=== PATIENT | female | born 1950 | race African-American/Black ===

== ENCOUNTER 2019-11-02 08:57 | Emergency (ER) | payer OTHER ==
[2019-11-02] MEDS ORDERED: PROMETHAZINE INJ 25 MG/ML AMP ONE (09:34)
[2019-11-02] MEDS ORDERED: NA CHLORIDE 0.9% 1,000 ML ONE (09:34)
[2019-11-02] MEDS ORDERED: ACETAMINOPHEN 325 MG TABLET ONE (09:34)
[2019-11-02 10:02] LABS: Absolute Lymphocytes (CBC) 0.6 K/uL (0.7-4.9); Basophils % 0.2 % (0-1.3); Hematocrit 44.4 % (36.0-45.0); Lymphocytes % 3.7 % (15.3-44.8); MPV 8.5 fL (7.6-11.3); RBC Red Blood Cell Count 5.47 M/uL (3.86-4.86)
[2019-11-02 10:19] LABS: Albumin 3.5 g/dL (3.4-5.0); Bilirubin Direct 0.2 mg/dL (0-0.2); Bilirubin Total 0.8 mg/dL (0.2-1.0); Potassium 4.1 mmol/L (3.5-5.1); Protein, Total 8.3 g/dL (6.4-8.2)
[2019-11-02 11:16] LABS: Blood Morphology Comment NOT SEEN (NOT SEEN); Platelet Estimate ADEQ
--- NOTE | 2019-11-02 11:29 | RAD REPORT ---
EXAM DESCRIPTION: CTAbdomen Pelvis W Contrast - 11/02/2019 10:34 am CLINICAL HISTORY: Abdominal pain. Abd pain;Nausea / vomiting COMPARISON: No comparisons TECHNIQUE: Biphasic CT imaging of the abdomen and pelvis was performed with 100 ml non-ionic IV cont rast. All CT scans are performed using dose optimization technique as appropriate and may include automated exposure control or mA/KV adjustment according to patient size. FINDINGS: Emphysematous changes are present in both lung bases.Small hiatal hernia. Mild diffuse fatty liver is present. The spleen, pancreas, adrenal glands and kidneys show no acute p rocess. 19 mm benign left renal cyst. No bowel obstruction, free air, free fluid or abscess. The appendix is normal. Multiple large masses are present emanating from the uterus likely representing fibroids. No evidence of significant lymph adenopathy. No suspicious bony findings. IMPRESSION: No acute intra-abdominal or pelvic finding. Leiomyomatous uterus.
[2019-11-02] MEDS ORDERED: metroNIDAZOLE 500 MG TABLET ONE (11:43)
[2019-11-02] MEDS ORDERED: CIPROFLOXACIN HCL 500 MG TAB ONE (11:43)
--- NOTE | 2019-11-02 11:59 | ER ---
Nurse's Notes [facility] Name: Sobeida Hay Age: 69 yrs Sex: Female : 1950 Arrival Date: 11/02/2019 Time: 09:01 Bed 7 Private MD: Mary Woo C Diagnosis: Vomiting, unspecified;Diarrhea, unspecified Presentation: 11/01 09:07 Chief complaint: Patient states: LUQ pain that began last night. Pt also reports N/V/D. aa5 09:07 Coronavirus screen: The patient has NOT traveled to a country currently being monitored aa5 by the [facility] within the last 14 days. Ebola Screen: Patient negative for fever greater than or equal to 101.5 degrees Fahrenheit, and additional compatible Ebola Virus Disease symptoms. Initial Sepsis Screen: Does the patient meet any 2 criteria? HR > 90 bpm. Does the patient have a suspected source of infection? Yes: Acute abdominal pain. Risk Assessment: Do you want to hurt yourself or someone else? Patient reports no desire to harm self or others. 09:07 Acuity: MONICA 3 aa5 09:07 Method Of Arrival: Ambulatory aa5 Historical: - Allergies: 09:58 Tamiflu; em - PMHx: 09:16 Irregular heart rate; aa5 - PSHx: 09:16 colon resection; cataracts; Hernia repair; tubal ; aa5 - Immunization history:: Adult Immunizations up to date. - Family history:: not pertinent. - Social history:: Smoking status: Patient denies any tobacco usage or history of. - Hospitalizations: : No recent hospitalization is reported. Screenin:30 Abuse screen: Denies threats or abuse. Nutritional screening: No deficits noted. em Tuberculosis screening: No symptoms or risk factors identified. Fall Risk None identified. Assessment: 09:30 General: Appears in no apparent distress. comfortable, well groomed, well developed, em well nourished, Behavior is calm, cooperative, Denies fever. Pain: Complains of pain in epigastric area Pain began 1 day ago. Neuro: Level of Consciousness is awake, alert, obeys commands, Oriented to person, place, time, situation, Appropriate for age. Cardiovascular: Capillary refill < 3 seconds Patient's skin is warm and dry. Respiratory: Airway is patent Respiratory effort is even, unlabored, Respiratory pattern is regular, symmetrical. GI: Abdomen is flat, Bowel sounds present X 4 quads. Reports diarrhea, nausea, vomiting. EENT: Oral mucosa is dry. Derm: Skin is intact, is healthy with good turgor, Skin is pink, warm \T\ dry. Musculoskeletal: Capillary refill < 3 seconds, Range of motion: intact in all extremities. 10:46 Reassessment: Patient appears in no apparent distress at this time. Patient and/or em family updated on plan of care and expected duration. Pain level reassessed. Patient is alert, oriented x 3, equal unlabored respirations, skin warm/dry/pink. Patient states feeling better. Patient states symptoms have improved. 11:45 Reassessment: Patient appears in no apparent distress at this time. Patient and/or em family updated on plan of care and expected duration. Pain level reassessed. Patient is alert, oriented x 3, equal unlabored respirations, skin warm/dry/pink. Patient states feeling better. Patient states symptoms have improved. Vital Signs: 09:07 BP 127 / 95; Pulse 124; Resp 18 S; Temp 99.2(TE); Pulse Ox 96% on R/A; aa5 09:11 BP 139 / 99; Pulse 104; Resp 20; Pulse Ox 96% on R/A; em 10:00 BP 127 / 79; Pulse 100; Resp 18; Pulse Ox 99% on R/A; em 10:47 BP 119 / 66; Pulse 85; Resp 18; Pulse Ox 96% on R/A; Pain 2/10; em 11:36 BP 130 / 70; Pulse 85; Resp 18; Pulse Ox 94% on R/A; em ED Course: 09:01 Patient arrived in ED. ag5 09:01 Mary Woo MD is Private Physician. ag5 09:02 Easton Osborne MD is Attending Physician. rn 09:07 Arm band placed on. aa5 09:15 Triage completed. aa5 09:15 Rashard Howell, RN is Primary Nurse. em 09:30 Patient has correct armband on for positive identification. Placed in gown. Bed in low em position. Call light in reach. Side rails up X2. Adult w/ patient. Pulse ox on. NIBP on. 09:45 Initial lab(s) drawn, by me, sent to lab. Inserted saline lock: 20 gauge in left em antecubital area, using aseptic technique. Blood collected. 10:34 CT completed. Patient tolerated procedure well. Patient moved back from CT. mw3 10:35 CT Abd/Pelvis - IV Contrast Only In Process Unspecified. EDMS 11:58 Mary Woo MD is Referral Physician. rn 12:12 No provider procedures requiring assistance completed. IV discontinued, intact, em bleeding controlled, No redness/swelling at site. Pressure dressing applied. Administered Medications: 09:38 Drug: Tylenol 650 mg Route: PO; em 11:44 Follow up: Response: No adverse reaction em 09:45 Drug: NS 0.9% 1000 ml Route: IV; Rate: 1000 ml; Site: left antecubital; em 11:36 Follow up: IV Status: Completed infusion; IV Intake: 1000ml em 09:45 Drug: Phenergan 12.5 mg Route: IVP; Site: left antecubital; em 11:36 Follow up: Response: No adverse reaction; Marked relief of symptoms; Nausea is decreasedem 11:44 Drug: Cipro 500 mg Route: PO; em 12:16 Follow up: Response: No adverse reaction em 11:44 Drug: Flagyl 500 mg Route: PO; em 12:16 Follow up: Response: No adverse reaction em Intake: 11:36 IV: 1000ml; Total: 1000ml. em Outcome: :58 Discharge ordered by MD. rn 12:12 Discharged to home via wheelchair, with family. em 12:12 Condition: good 12:12 Discharge instructions given to patient, family, Instructed on discharge instructions, follow up and referral plans. medication usage, Demonstrated understanding of instructions, follow-up care, medications, Prescriptions given X 3. 12:17 Patient left the ED. em Signatures: Dispatcher [employer] EDMS Rashard Howell RN RN em Easton Osborne MD MD rn Calderon, Audri, RN RN aa5 Jennifer Hoover mw3 Esme Tinoco 5 Corrections: (The following items were deleted from the chart) :58 09:16 Allergies: No Known Allergies; aa5 em
--- NOTE | 2019-11-02 12:00 | EDPHYS ---
Physician Documentation [facility] Name: Sobeida Hay Age: 69 yrs Sex: Female : 1950 Arrival Date: 11/02/2019 Time: 09:01 Bed 7 Private MD: Mary Woo C ED Physician Easton Osborne HPI: 11/01 09:42 This 69 yrs old Black Female presents to ER via Ambulatory with complaints of rn Vomiting/Diarrhea, Abdominal Pain. 09:42 The patient presents to the emergency department with nausea, vomiting, diarrhea, rn abdominal pain, of the epigastric area and umbilical area, described as burning. Onset: The symptoms/episode began/occurred last night. Possible causes: unknown. The symptoms are aggravated by nothing. The symptoms are alleviated by nothing. Severity of symptoms: At their worst the symptoms were moderate in the emergency department the symptoms are unchanged. The patient has not experienced similar symptoms in the past. reports nausea/vomiting/diarrhea that began last night, assoc with burning mid and upper abd pain, grandchild is sick with similar symptoms, no cough/sob. No blood in emesis or stool. . Historical: - Allergies: 09:58 Tamiflu; em - PMHx: 09:16 Irregular heart rate; aa5 - PSHx: 09:16 colon resection; cataracts; Hernia repair; tubal ; aa5 - Immunization history:: Adult Immunizations up to date. - Family history:: not pertinent. - Social history:: Smoking status: Patient denies any tobacco usage or history of. - Hospitalizations: : No recent hospitalization is reported. ROS: 09:42 Constitutional: + subjective fever Eyes: Negative for injury, pain, redness, and sports marketing internship, ENT: Negative for injury, pain, and discharge, Neck: Negative for injury, pain, and swelling, Cardiovascular: Negative for chest pain, palpitations, and edema, Respiratory: Negative for shortness of breath, cough, wheezing, and pleuritic chest pain, Abdomen/GI: + abd pain/nausea/vomiting/diarrhea MS/Extremity: Negative for injury and deformity, Skin: Negative for injury, rash, and discoloration, Neuro: Negative for headache, numbness, tingling, and seizure. Exam: 09:42 Constitutional: This is a well developed, well nourished patient who is awake, alert, rn and in no acute distress. Head/Face: Normocephalic, atraumatic. ENT: dry MM Cardiovascular: Tachycardic, regular, intact distal pulses Respiratory: No increased work of breathing, no retractions or nasal flaring. Abdomen/GI: soft, mild periumbilical tenderness MS/ Extremity: Pulses equal, no cyanosis. Neuro: Awake and alert, GCS 15, oriented to person, place, time, and situation. Vital Signs: 09:07 BP 127 / 95; Pulse 124; Resp 18 S; Temp 99.2(TE); Pulse Ox 96% on R/A; aa5 09:11 BP 139 / 99; Pulse 104; Resp 20; Pulse Ox 96% on R/A; em 10:00 BP 127 / 79; Pulse 100; Resp 18; Pulse Ox 99% on R/A; em 10:47 BP 119 / 66; Pulse 85; Resp 18; Pulse Ox 96% on R/A; Pain 2/10; em 11:36 BP 130 / 70; Pulse 85; Resp 18; Pulse Ox 94% on R/A; em MDM: 09:08 Patient medically screened. rn 11:12 ED course: Pt improved, no vomiting or diarrhea while here. . rn 11:56 Differential diagnosis: Nonspecific abd pain, gastritis, appendicitis, diverticulitis, rn viral gastroenteritis, gastroenteritis. Data reviewed: vital signs, nurses notes, lab test result(s), radiologic studies, CT scan, and as a result, I will discharge patient. Counseling: I had a detailed discussion with the patient and/or guardian regarding: the historical points, exam findings, and any diagnostic results supporting the discharge/admit diagnosis, lab results, radiology results, the need for outpatient follow up, to return to the emergency department if symptoms worsen or persist or if there are any questions or concerns that arise at home. Response to treatment: the patient's symptoms have markedly improved after treatment, and as a result, I will discharge patient. Special discussion: I discussed with the patient/guardian in detail that at this point there is no indication for admission to the hospital. It is understood, however, that if the symptoms persist or worsen the patient needs to return immediately for re-evaluation. ED course: No acute findings on CT abdomen, most likely enteritis, consulted with Dr. Woo who requests abx given if discharged. . 11/01 09:18 Order name: Basic Metabolic Panel; Complete Time: 10:34 rn 11/01 09:18 Order name: CBC with Diff; Complete Time: 11:31 rn 11/01 09:18 Order name: Creatinine for Radiology; Complete Time: 10:34 rn 11/01 09:18 Order name: Hepatic Function; Complete Time: 10:34 rn 11/01 09:18 Order name: Lipase; Complete Time: 10:34 rn 11/01 09:18 Order name: Flu; Complete Time: 10:14 rn 11/01 09:18 Order name: IV Saline Lock; Complete Time: 09:59 rn 11/01 09:18 Order name: CT Abd/Pelvis - IV Contrast Only; Complete Time: 11:31 rn 11/01 11:16 Order name: Manual Differential; Complete Time: 11:31 EDMS 11/01 09:18 Order name: Labs collected and sent; Complete Time: 09:59 rn Administered Medications: 09:38 Drug: Tylenol 650 mg Route: PO; em 11:44 Follow up: Response: No adverse reaction em 09:45 Drug: NS 0.9% 1000 ml Route: IV; Rate: 1000 ml; Site: left antecubital; em 11:36 Follow up: IV Status: Completed infusion; IV Intake: 1000ml em 09:45 Drug: Phenergan 12.5 mg Route: IVP; Site: left antecubital; em 11:36 Follow up: Response: No adverse reaction; Marked relief of symptoms; Nausea is decreasedem 11:44 Drug: Cipro 500 mg Route: PO; em 12:16 Follow up: Response: No adverse reaction em 11:44 Drug: Flagyl 500 mg Route: PO; em 12:16 Follow up: Response: No adverse reaction em Disposition: 11/02/19 11:58 Discharged to Home. Impression: Vomiting, unspecified, Diarrhea, unspecified. - Condition is Stable. - Discharge Instructions: Diarrhea, Adult, Nausea and Vomiting, Adult. - Prescriptions for Zofran ODT 4 mg Oral tablet,disintegrating - place 1 tablet by TRANSLINGUAL route every 8 hours As needed; 20 tablet. Flagyl 500 mg Oral Tablet - take 1 tablet by ORAL route every 8 hours for 10 days; 30 tablet. Cipro 500 mg Oral Tablet - take 1 tablet by ORAL route every 12 hours for 10 days; 20 tablet. - Medication Reconciliation Form, Thank You Letter, Antibiotic Education, Prescription Opioid Use form. - Follow up: Mary Woo MD; When: As needed; Reason: Recheck today's complaints, Re-evaluation by your physician. - Problem is new. - Symptoms have improved. Signatures: Dispatcher [employer] EDRashard Thomas RN RN em Easton Osborne MD MD rn Calderon, Audri, RN RN aa5 Corrections: (The following items were deleted from the chart) 09:58 09:16 Allergies: No Known Allergies; aa5 em 12:17 11:58 11/02/2019 11:58 Discharged to Home. Impression: Vomiting, unspecified; Diarrhea, em unspecified. Condition is Stable. Forms are Medication Reconciliation Form, Thank You Letter, Antibiotic Education, Prescription Opioid Use. Follow up: Mary Woo; When: As needed; Reason: Recheck today's complaints, Re-evaluation by your physician. Problem is new. Symptoms have improved. rn
[2019-11-02 12:24] VITALS: TEMP 99.2
[2019-11-02 12:30] VITALS: BP 130/70; O2SAT 94
== END 2019-11-02 12:17 | disposition home or self-care (01) ==
LOC: ER 08:57
DX: R19.7 Diarrhea, unspecified (principal); Z88.8 Allergy status to other drugs, medicaments and biological substances
CPT/HCPCS: 96361; 85025; 80048; 36415; 80076; 83690; 87804 ×2; 74177; 96374; 99284; Q9967; J2550; J7030

== ENCOUNTER 2021-11-24 08:47 | Emergency (ER) | payer OTHER ==
--- OUTSIDE RECORDS SUMMARY | 2021-11-24 08:52 | XMS REPORT | Continuity of Care Document ---
:1950 Author Organization [facility] Address [address] [place] [address] Care Team Providers Name Role Phone [phone] Primary Care Physician Unavailable LUKE Attending Clinician Unavailable MD Caty EDWARDS Attending Clinician Unavailable JERRY Attending Clinician Unavailable Babs REAL Attending Clinician Unavailable LUKE Admitting Clinician Unavailable MD Caty EDWARDS Admitting Clinician Unavailable Payers Payer Name Policy Type Policy Number Effective Date Expiration Date S ource [employer]ARE [address] 2013 PPO 00:00:00 [employer] PPO POS [address] 2013 2015 00:00:00 00:00:00 Problems This patient has no known problems. Allergies, Adverse Reactions, Alerts This patient has no known allergies or adverse reactions. Medications This patient has no known medications. Procedures This patient has no known procedures. Encounters Start End Encounter Admission Attending Care Care Encounter Source Date/Time Date/Time Type Type Clinicians Facility Department ID 2021-09-29 Outpatient TITUS QURESHI [id number] 17:49:09 Anderso n 2021-09-29 Outpatient TITUS QURESHI [id number] 17:49:09 Anderso n 2021-09-29 Outpatient TITUS QURESHI [id number] 17:49:08 Anderso n 2021-09-29 Outpatient TITUS QURESHI [id number] 17:49:08 Anderso n 2021-09-29 Outpatient TITUS QURESHI [id number] 17:49:07 Anderso n 2020-03-18 Outpatient TITUS BUTLER Preethi/Hep/Nu [id number] 10:45:28 FLORENCIO t Anderso n 2021-04-25 2021-04-25 Outpatient SUJATHA EDWARDS H [id number] [place] 00:00:00 00:00:00 [address] [address] 2020-12-31 2020-12-31 Outpatient [facility] [id number] 07:24:35 07:24:35 Crow johnson Results Test Description Test Time Test Comments Results Result Comments Source SARS-CoV-2 (COVID-19) RNA [Presence] in Respiratory sp ecimen by 2021-04-25 22:12:55 FRANCOISE with probe detection Test Item Value Reference Range Interpretation Comme nts SARS-CoV-2 (COVID-19) RNA [Presence] in Respiratory Not detected No t-Detected specimen by FRANCOISE with probe detection (test code = 04973-0) Whether patient is employed in a healthcare setting (test code = 93201-5) Whether the patient has symptoms related to condition of interest (test code = 72660-1) Patient was hospitalized because of this condition (test code = 30939-9) Whether the patient was admitted to intensive care unit (ICU) for condition of interest (test code = 84888-2) Whether patient resides in a congregate care setting (test code = 27394-0)
--- NOTE | 2021-11-24 09:33 | RAD REPORT ---
EXAM DESCRIPTION: CT - Head C Spine Mpr Wo Con - 11/24/2021 9:14 am CLINICAL HISTORY: Head and neck injury status post fall. Head and neck pain COMPARISON: None. TECHNIQUE: Computed axial tomography of the head and cervical spine was obtained. Sagittal and coronal reconstruction was performed. All CT scans are performed using dose optimization technique as appropriate and may include automated exposure control or mA/KV adjustment according to patient size. FINDINGS: Left frontal scalp swelling. An intracranial bleed is not seen. The ventricles are normal in caliber. An extra-axial fluid collect ion is not noted. A cervical fracture is not visualized. No dislocation is noted. Spondylosis involves the cervical spine IMPRESSION: No acute intracranial abnormality is seen. A cervical fracture is not visualized. If the patient continues to have symptoms to suggest intracra nial /spinal cord pathology then MRI would be recommended
--- NOTE | 2021-11-24 09:36 | RAD REPORT ---
EXAM DESCRIPTION: CT - Facial Bones W/ Mpr - 11/24/2021 9:14 am CLINICAL HISTORY: Facial injury status post fall COMPARISON: Facial pain TECHNIQUE: Computed axial tomography of the face was obtained. Coronal and sagittal reconstruction w as performed. All CT scans are performed using dose optimization technique as appropriate and may include automated exposure control or mA/KV adjustment according to patient size. FINDINGS: Left supraorbital swelling. A fracture is not seen. A TMJ dislocation is not noted. The globes are intact. Fluid within the sinuses is not seen. IMPRESSION: Negative for a facial fracture.
--- NOTE | 2021-11-24 09:50 | EDPHYS ---
Physician Documentation [facility] Name: Sobeida Hay Age: 71 yrs Sex: Female : 1950 Arrival Date: 11/24/2021 Time: 08:51 Bed 8 Private MD: Mary Woo C ED Physician Easton Osborne HPI: 11/24 08:56 This 71 yrs old Black Female presents to ER via Unassigned with complaints of Fall rn Injury, Head Injury-Adult. 08:56 Details of fall: The patient fell from an upright position, while walking. Onset: The rn symptoms/episode began/occurred just prior to arrival. Associated injuries: The patient sustained injury to the head. Severity of symptoms: At their worst the symptoms were mild, in the emergency department the symptoms are unchanged. The patient has not experienced similar symptoms in the past. The patient has not recently seen a physician. Pt reports walking around her car to put something in trunk, was uneven floor, fell, not able to catch herself, hit head on concrete. No LOC. NO vomiting. Does not take blood thinners. NO other injuries. States got up on her own and called her family member. Ambulatory. . Historical: - Allergies: 09:04 No Known Allergies; ap3 - Home Meds: 09:04 omeprazole 20 mg Oral cpDR [Active]; ap3 - PMHx: 09:04 Irregular heart rate; ap3 09:04 Cancer-Colorectal cancer- In remission; ap3 - Immunization history:: Client reports receiving the 2nd dose of the Covid vaccine, with booster Last tetanus immunization: not immunized Flu vaccine is not up to date. - Immunization history: Last tetanus immunization: unknown. - Family history:: not pertinent. - Social history:: Smoking status: Patient denies any tobacco usage or history of. - Hospitalizations: : No recent hospitalization is reported. ROS: 08:56 Constitutional: Negative for fever, chills, and weight loss, Eyes: Negative for injury, rn pain, redness, and discharge, ENT: Negative for injury, pain, and discharge, Neck: Negative for injury, pain, and swelling, Cardiovascular: Negative for chest pain, palpitations, and edema, Respiratory: Negative for shortness of breath, cough, wheezing, and pleuritic chest pain, Abdomen/GI: Negative for abdominal pain, nausea, vomiting, diarrhea, and constipation, Back: Negative for injury and pain, MS/Extremity: Negative for injury and deformity, Skin: + abrasions to face and left 5th finger Neuro: Negative for weakness, numbness, tingling, and seizure, + mild headache Exam: 08:56 Constitutional: This is a well developed, well nourished patient who is awake, alert, rn and in no acute distress. Ambulatory to bed from wheelchair on her own without assistance. Head/Face: Normocephalic, 3 cm left frontal hematoma without laceration or active bleeding. + abrasions to left cheek and just above lip. + abrasion to nasal bridge. Eyes: Pupils equal round and reactive to light, extra-ocular motions intact. Lids and lashes normal. Conjunctiva and sclera are non-icteric and not injected. Cornea within normal limits. Periorbital areas with no swelling, redness, or edema. ENT: No septal hematoma, no oral trauma, no dental injury or malalignment. Neck: Trachea midline, no masses palpated. No vertebral point tenderness. Chest/axilla: Normal chest wall appearance and motion. Nontender with no deformity. No crepitus Cardiovascular: Regular rate and rhythm. No pulse deficits. Respiratory: No increased work of breathing, no retractions or nasal flaring. Abdomen/GI: Soft, non-tender Back: No spinal tenderness. No costovertebral tenderness. Full range of motion. Skin: Warm, dry, + small abrasion to dorsum of left 5th finger over PIP, + abrasions to left forehead/nasal bridge/left cheek/left philtrum. MS/ Extremity: Pulses equal, no cyanosis. Neurovascular intact. Full, normal range of motion. Equal circumference. FROM without scissoring of left hand. Neuro: Awake and alert, GCS 15, oriented to person, place, time, and situation. Cranial nerves II-XII grossly intact. Motor strength 5/5 in all extremities. Sensory grossly intact. Cerebellar exam normal. Normal gait. Vital Signs: 09:02 BP 157 / 78; Pulse 70; Temp 98.7; Pulse Ox 100% ; Weight 81.65 kg; Height 5 ft. 6 in. ap3 (167.64 cm); 09:30 BP 156 / 78; Pulse 74; Resp 16; Pulse Ox 99% ; vg1 09:02 Body Mass Index 29.05 (81.65 kg, 167.64 cm) ap3 [place] Coma Score: 09:02 Eye Response: spontaneous(4). Verbal Response: oriented(5). Motor Response: obeys ap3 commands(6). Total: 15. 09:30 Eye Response: spontaneous(4). Verbal Response: oriented(5). Motor Response: obeys vg1 commands(6). Total: 15. Trauma Score (Adult): 09:02 Eye Response: spontaneous(1); Verbal Response: oriented(1); Motor Response: obeys ap3 commands(2); Systolic BP: > 89 mm Hg(4); Respiratory Rate: 10 to 29 per min(4); [place] Score: 15; Trauma Score: 12 09:30 Eye Response: spontaneous(1); Verbal Response: oriented(1); Motor Response: obeys vg1 commands(2); Systolic BP: > 89 mm Hg(4); Respiratory Rate: 10 to 29 per min(4); [place] Score: 15; Trauma Score: 12 MDM: 08:55 Patient medically screened. rn 09:48 Differential diagnosis: abrasion, closed head injury, contusion, fracture. Data rn reviewed: vital signs, nurses notes, radiologic studies, CT scan, and as a result, I will discharge patient. Counseling: I had a detailed discussion with the patient and/or guardian regarding: the historical points, exam findings, and any diagnostic results supporting the discharge/admit diagnosis, radiology results, the need for outpatient follow up, to return to the emergency department if symptoms worsen or persist or if there are any questions or concerns that arise at home. Response to treatment: the patient's symptoms have markedly improved after treatment, and as a result, I will discharge patient. Special discussion: Based on the patient's history, exam and DX evaluation, there is no indication for emergent intervention or inpatient TX. It is understood by the patient/guardian that if the SXs persist or worsen they need to return immediately for re-evaluation. I discussed with the patient/guardian in detail that at this point there is no indication for admission to the hospital. It is understood, however, that if the symptoms persist or worsen the patient needs to return immediately for re-evaluation. 11/24 08:56 Order name: CT Head C Spine; Complete Time: 09:48 rn 11/24 08:56 Order name: CT Facial Bones W/O Con; Complete Time: 09:48 rn 11/24 08:56 Order name: Wound Care; Complete Time: 08:57 rn 11/24 08:56 Order name: Wound dressing: steri-strips; Complete Time: 09:34 rn Administered Medications: 09:58 Drug: Tylenol 650 mg Route: PO; vg1 10:08 Follow up: Response: Medication administered at discharge. vg1 Disposition Summary: 11/24/21 09:49 Discharge Ordered Location: Home rn Problem: new rn Symptoms: have improved rn Condition: Stable rn Diagnosis - Unspecified superficial injury of other part of head, initial encounter rn Followup: rn - With: Private Physician - When: As needed - Reason: Recheck today's complaints, Re-evaluation by your physician Discharge Instructions: - Discharge Summary Sheet rn - Head Injury, Adult rn - Hematoma rn Forms: - Medication Reconciliation Form rn - Thank You Letter rn - Antibiotic international first officer - Prescription Opioid Use rn Signatures: Dispatcher [employer] EDEaston Jiménez MD MD rn Prokisch, Amanda RN RN [id number] Taty Loco, RN RN vg1 Corrections: (The following items were deleted from the chart) 09:05 09:04 Allergies: Tamiflu; ap3 ap3
--- NOTE | 2021-11-24 09:50 | ER ---
Nurse's Notes [facility] Name: Sobeida Hay Age: 71 yrs Sex: Female : 1950 Arrival Date: 11/24/2021 Time: 08:51 Bed 8 Private MD: Mary Woo C Diagnosis: Unspecified superficial injury of other part of head, initial encounter Presentation: 11/24 08:59 Chief complaint: Patient states: she was walking on uneven ground when she fell, she ap3 attempted to catch herself, however patient reports hitting her head on concrete. Patient presents with abrasions to her face, visible knot on her forehead and abrasions on her left hand. Care prior to arrival: None. Mechanism of Injury: Fall from standing position. Trauma event details: Injury occurred in the [facility], Injury occurred: November 24, 2021. 08:59 Acuity: MONICA 3 ap3 08:59 Method Of Arrival: Ambulatory ap3 09:03 Coronavirus screen: At this time, the client does not indicate any symptoms associated ap3 with coronavirus-19. Ebola Screen: No symptoms or risks identified at this time. Initial Sepsis Screen: Does the patient meet any 2 criteria?. Initial Sepsis Screen: Does the patient have a suspected source of infection? No. Patient's initial sepsis screen is negative. Risk Assessment: Do you want to hurt yourself or someone else? Patient reports no desire to harm self or others. Onset of symptoms was November 24, 2021. Trauma Activation: Alert Physician: ED Physician; Name: Concepcion; Notified At: ; Arrived At: Physician: General Surgeon; Name: ; Notified At: ; Arrived At: Physician: Radiology; Name: ; Notified At: ; Arrived At: Physician: Respiratory; Name: ; Notified At: ; Arrived At: Physician: Lab; Name: ; Notified At: ; Arrived At: Historical: - Allergies: 09:04 No Known Allergies; ap3 - Home Meds: 09:04 omeprazole 20 mg Oral cpDR [Active]; ap3 - PMHx: 09:04 Irregular heart rate; ap3 09:04 Cancer-Colorectal cancer- In remission; ap3 - Immunization history:: Client reports receiving the 2nd dose of the Covid vaccine, with booster Last tetanus immunization: not immunized Flu vaccine is not up to date. - Immunization history: Last tetanus immunization: unknown. - Family history:: not pertinent. - Social history:: Smoking status: Patient denies any tobacco usage or history of. - Hospitalizations: : No recent hospitalization is reported. Screenin:01 Abuse screen: Denies threats or abuse. Nutritional screening: No deficits noted. ap3 Tuberculosis screening: No symptoms or risk factors identified. Fall Risk Fall in past 12 months (25 points). No secondary diagnosis (0 pts). No IV (0 pts). Ambulatory Aid- None/Bed Rest/Nurse Assist (0 pts). Gait- Normal/Bed Rest/Wheelchair (0 pts) Mental Status- Oriented to own ability (0 pts). Total Rosario Fall Scale indicates Low Risk Score (25-44 pts). Fall prevention measures have been instituted. Side Rails Up X 2 Placed close to Nursing Station Frequent Obs/Assesments occuring Family Present and informed to notify staff if they need to leave bedside As available Patient and Family Educated on Fall Prevention Program and strategies. Primary Survey: 09:01 NO uncontrolled hemorrhage observed. A: The patient is alert. Airway: patent, No ap3 supplemental oxygen in use on arrival. Breathing/Chest: Respiratory pattern: regular, Respiratory effort: spontaneous, Chest inspection: symmetrical rise and fall of the chest. Circulation: Skin temperature: warm, dry. Disability Alert. Exposure/Environment: All clothing and personal items were removed. Forensic evidence collection is not deemed to be indicated at this time. Items placed in patient belonging bag. There is no evidence of uncontrolled external bleeding. Obvious injury(ies) are noted at this time: multiple abrasions on face, left hand and swelling on forehead. A warming method has been applied: A warm blanket has been provided to the patient. 09:30 Reassessment Airway Airway Patent Breathing/Chest Respiratory pattern Regular vg1 Respiratory effort Spontaneous Circulation Color [place] Disability Alert. Secondary Survey: 09:04 HEENT: Face Other large hematoma to forehead above left eye, abrasion to bridge of ph nose, abrasion below left eye, abrasion to left pinky finger. Musculoskeletal: No deficits noted. No signs and/or symptoms reported regarding the musculoskeletal system. Injury Description: Abrasion sustained to nose, left side of forehead and left eye. Injury Description: Abrasion sustained to palmar aspect of distal phalanx of left little finger. Assessment: 09:00 General: Appears in no apparent distress. Behavior is calm, cooperative. Pain: ap3 Complains of pain in face. Neuro: Level of Consciousness is awake, alert, obeys commands, Oriented to person, place, time, situation, Gait is steady, Speech is normal, Facial symmetry appears normal. Cardiovascular: Patient's skin is warm and dry. Respiratory: Airway is patent Respiratory effort is even, unlabored. Derm: Wound noted face and left hand. Musculoskeletal: Swelling present in forehead. 09:00 General: Appears in no apparent distress. uncomfortable, Behavior is calm, cooperative. vg1 Pain: Complains of pain in forehead and left cheek Pain currently is 1 out of 10 on a pain scale. Pain began 30 min ago. Neuro: Level of Consciousness is awake, alert, obeys commands, Oriented to person, place, time, situation, Reports headache. Cardiovascular: Patient's skin is warm and dry. Respiratory: Airway is patent Respiratory effort is even, unlabored. GI: No signs and/or symptoms were reported involving the gastrointestinal system. : No signs and/or symptoms were reported regarding the genitourinary system. EENT: No signs and/or symptoms were reported regarding the EENT system. Derm: Wound noted wound forehead and left cheek. Musculoskeletal: Swelling present in forehead. 09:58 Reassessment: received VO from Dr Osborne to administer Tylenol 650 mg PO. vg1 Vital Signs: 09:02 BP 157 / 78; Pulse 70; Temp 98.7; Pulse Ox 100% ; Weight 81.65 kg; Height 5 ft. 6 in. ap3 (167.64 cm); 09:30 BP 156 / 78; Pulse 74; Resp 16; Pulse Ox 99% ; vg1 09:02 Body Mass Index 29.05 (81.65 kg, 167.64 cm) ap3 [place] Coma Score: 09:02 Eye Response: spontaneous(4). Verbal Response: oriented(5). Motor Response: obeys ap3 commands(6). Total: 15. 09:30 Eye Response: spontaneous(4). Verbal Response: oriented(5). Motor Response: obeys vg1 commands(6). Total: 15. Trauma Score (Adult): 09:02 Eye Response: spontaneous(1); Verbal Response: oriented(1); Motor Response: obeys ap3 commands(2); Systolic BP: > 89 mm Hg(4); Respiratory Rate: 10 to 29 per min(4); [place] Score: 15; Trauma Score: 12 09:30 Eye Response: spontaneous(1); Verbal Response: oriented(1); Motor Response: obeys vg1 commands(2); Systolic BP: > 89 mm Hg(4); Respiratory Rate: 10 to 29 per min(4); [place] Score: 15; Trauma Score: 12 ED Course: 08:51 Patient arrived in ED. mr 08:51 Mary Woo MD is Private Physician. mr 08:55 Easton Osborne MD is Attending Physician. rn 09:00 Triage completed. ap3 09:03 Arm band placed on right wrist. ap3 09:03 Patient has correct armband on for positive identification. Bed in low position. Call ap3 light in reach. Side rails up X2. Adult w/ patient. Pulse ox on. NIBP on. Door closed. Noise minimized. 09:06 Patient maintains SpO2 saturation greater than 95% on room air. Thermoregulation: warm ph blanket given to patient. 09:16 CT Head C Spine In Process Unspecified. EDMS 09:16 CT Facial Bones W/O Con In Process Unspecified. EDMS 09:32 Taty Loco, RN is Primary Nurse. vg1 10:09 No provider procedures requiring assistance completed. Patient did not have IV access vg1 during this emergency room visit. Administered Medications: 09:58 Drug: Tylenol 650 mg Route: PO; vg1 10:08 Follow up: Response: Medication administered at discharge. vg1 Outcome: 09:49 Discharge ordered by . rn 09:50 Discharged to home via wheelchair, with family. vg1 09:50 Condition: good 09:50 Patient's length of stay was not longer than 2 hours. 10:09 Discharge instructions given to patient, family, Instructed on discharge instructions, vg1 follow up and referral plans. Demonstrated understanding of instructions, follow-up care. 10:10 Patient left the ED. vg1 Signatures: Dispatcher [employer] [facility] Doris Forte Easton Osborne MD MD rn Hall, Patricia, RN RN Sofia Jarquin RN RN [facility] Taty Loco RN RN vg1 Corrections: (The following items were deleted from the chart) 09:04 09: NO uncontrolled hemorrhage observed ph ph : 09:02 A: The patient is alert. Airway: patent, No supplemental oxygen in use on ph arrival. ph : 09:02 Breathing/Chest: Respiratory pattern: regular, Respiratory effort: spontaneous, ph unlabored, Chest inspection: symmetrical rise and fall of the chest, ph : 09:02 Circulation: Skin color: pink, Skin temperature: warm, dry, ph ph : 09:02 Disability Alert ph ph : 09:02 Exposure/Environment: There is no evidence of uncontrolled external bleeding. ph Obvious injury(ies) are noted at this time: large hematoma to L side of forehead, abrasion to bridge of nose, abrasion below L eye, small abrasion to L middle finger A warming method has been applied: A warm blanket has been provided to the patient. ph :04 Allergies: Tamiflu; ap3 ap3
[2021-11-24] MEDS ORDERED: ACETAMINOPHEN 325 MG TABLET ONE (10:01)
[2021-11-24 10:14] VITALS: TEMP 98.7
[2021-11-24 10:15] VITALS: BP 156/78; O2SAT 99
== END 2021-11-24 10:10 | disposition home or self-care (01) ==
LOC: ER 08:47
DX: S00.81XA Abrasion of other part of head, initial encounter (principal); S60.417A Abrasion of left little finger, initial encounter; W18.30XA Fall on same level, unspecified, initial encounter; Z85.038 Personal history of other malignant neoplasm of large intestine; Z85.048 Personal history of other malignant neoplasm of rectum, rectosigmoid junction, and anus
CPT/HCPCS: 70450; 70486; 72125; 76377; 99284

== ENCOUNTER 2023-12-12 13:19 | Emergency (ER) | payer OTHER ==
[2023-12-12] MEDS ORDERED: NA CHLORIDE 0.9% 1,000 ML ONE (13:38)
[2023-12-12] MEDS ORDERED: FAMOTIDINE 20 MG/2 ML VIAL IV ONE (13:38)
[2023-12-12] MEDS ORDERED: ONDANSETRON 4 MG/2 ML VIAL ONE (13:38)
[2023-12-12 14:06] LABS: Absolute Basophils 0.1 K/uL (0-0.5); Absolute Lymphocytes (CBC) 0.9 K/uL (0.7-4.9); Absolute Monocytes 0.4 K/uL (0.1-1.3); Absolute Neutrophil 9.6 K/uL (1.8-8.0); Basophils % 0.5 % (0-1.3); Hematocrit 43.6 % (36.0-45.0); Hemoglobin 13.9 g/dL (12.0-15.0); Lymphocytes % 8.3 % (15.3-44.8); MCH 26.3 pg (27.0-35.0); MCHC 31.8 g/dL (32.0-36.0); MCV 82.6 fL (80-100); MPV 8.4 fL (7.6-11.3); Neutrophils % 87.2 % (41.7-73.7); Platelets 225 thou/uL (152-406); RBC Red Blood Cell Count 5.28 M/uL (3.86-4.86)
--- NOTE | 2023-12-12 14:18 | RAD REPORT ---
EXAM DESCRIPTION: RAD - Chest Single View - 12/12/2023 2:05 pm CLINICAL HISTORY: PAIN Chest pain. COMPARISON: Chest Pa And Lat (2 Views) dated 06/08/2020; CHEST PA AND LAT 2 VIEW dated 03/22/2015 FINDINGS: Portable technique limits examination quality. The lungs are grossly clear. The heart is normal in size. No displaced fractures. IMPRESSION: No acute intrathoracic process suspected.
[2023-12-12 14:32] LABS: Albumin 3.5 g/dL (3.4-5.0); Albumin/Globulin Ratio 0.8 (1.1-1.8); Anion Gap 9.8 mEq/L (5.0-15.0); Bilirubin Total 0.7 mg/dL (0.2-1.0); Globulin 4.5 g/dL (2.3-3.5); Potassium 3.8 mEq/L (3.5-5.1); Troponin High Sensitivity 6.1 pg/mL (<58.9)
--- NOTE | 2023-12-12 14:33 | RAD REPORT ---
EXAM DESCRIPTION: US - Abdomen Exam Limited - 12/12/2023 2:26 pm CLINICAL HISTORY: ABD PAIN COMPARISON: Renal Ultrasound-Complete dated 06/09/2021 FINDINGS: The gallbladder demonstrates no gallstones. No pericholecystic fluid or gallbladder wall t hickening. The common bile duct is normal measuring 3 mm. The liver demonstrates no findings of intrahepatic biliary dilatation. IMPRESSION: Unremarkable examination.
--- NOTE | 2023-12-12 14:55 | RAD REPORT ---
EXAM DESCRIPTION: CTAbdomen Pelvis W Contrast - 12/12/2023 2:45 pm CLINICAL HISTORY: Abdominal pain. ABD PAIN COMPARISON: Abdomen Pelvis W Contrast dated 11/02/2019; Abdomen Exam Limited dated 12/12/2023 TECHNIQUE: Biphasic CT imaging of the abdomen and pelvis was performed with 100 ml non-ionic IV cont rast. All CT scans are performed using dose optimization technique as appropriate and may include automated exposure control or mA/KV adjustment according to patient size. FINDINGS: The lung bases are clear.Small hiatal hernia. The liver, spleen, pancreas, adrenal glands and kidneys are within normal limits. 2.9 cm benign left renal cyst. No bowel obstruction, free air, free fluid or abscess. Partial right-sided colectomy. Appendix surgic ally absent. No evidence of significant lymphadenopathy. Leiomyomatous uterus. No suspicious bony findings. IMPRESSION: No acute intra-abdominal or pelvic finding.
--- NOTE | 2023-12-12 15:07 | ER ---
Nurse's Notes [facility] Name: Sobeida Hay Age: 73 yrs Sex: Female : 1950 Arrival Date: 12/12/2023 Time: 13:19 Bed 19 Private MD: Diagnosis: Epigastric pain Presentation: 12/11 13:26 Chief complaint: Patient states: threw up a lot of thick, clear, mucus this morning, ko1 having epigastric pain, headache, called Dr Woo office and they told her to take a covid test which was negative, then suggested she come to ER. Coronavirus screen: At this time, the client does not indicate any symptoms associated with coronavirus-19. Ebola Screen: No symptoms or risks identified at this time. Initial Sepsis Screen: Does the patient meet any 2 criteria? No. Patient's initial sepsis screen is negative. Does the patient have a suspected source of infection? No. Patient's initial sepsis screen is negative. Risk Assessment: Do you want to hurt yourself or someone else? Patient reports no desire to harm self or others. Onset of symptoms was December 12, 2023. 13:26 Method Of Arrival: Ambulatory ko1 13:26 Acuity: MONICA 3 ko1 Triage Assessment: 13:31 General: Appears in no apparent distress. Behavior is calm, cooperative, appropriate ko1 for age. Pain: Complains of pain in epigastric area. GI: Reports epigastric pain, nausea, vomiting. Historical: - Allergies: 13:31 No Known Allergies; ko1 - PMHx: 13:31 Cancer-Colorectal cancer- In remission; Irregular heart rate; ko1 - Immunization history:: Adult Immunizations up to date. - Infectious Disease History:: Denies. - Social history:: Smoking status: Patient denies any tobacco usage or history of. Screenin:26 [facility] ED Fall Risk Assessment (Adult) History of falling in the last 3 months, kc6 including since admission No falls in past 3 months (0 pts) Confusion or Disorientation No (0 pts) Intoxicated or Sedated No (0 pts) Impaired Gait No (0 pts) Mobility Assist Device Used No (0 pt) Altered Elimination No (0 pt) Score/Fall Risk Level 0 - 2 = Low Risk. Abuse screen: Denies threats or abuse. Denies injuries from another. Nutritional screening: No deficits noted. Tuberculosis screening: No symptoms or risk factors identified. Assessment: 14:27 General: Appears in no apparent distress. comfortable, well groomed, well developed, kc6 Behavior is calm, cooperative, appropriate for age. Pain: Complains of pain in abdomen and epigastric area Quality of pain is described as burning. Neuro: Level of Consciousness is awake, alert, obeys commands, Oriented to person, place, time, situation, Appropriate for age Reports headache. Cardiovascular: Capillary refill < 3 seconds. Respiratory: Airway is patent Trachea midline Respiratory effort is even, unlabored, Respiratory pattern is regular, symmetrical. GI: Abdomen is flat, non-distended, Bowel sounds present X 4 quads. Abd is soft X 4 quads Abdomen is tender to palpation in epigastric area Reports upper abdominal pain, nausea, vomiting, Patient currently denies diarrhea. : No signs and/or symptoms were reported regarding the genitourinary system. EENT: No signs and/or symptoms were reported regarding the EENT system. Derm: No signs and/or symptoms reported regarding the dermatologic system. Skin is intact, is healthy with good turgor, Skin is pink, warm \T\ dry. Musculoskeletal: No signs and/or symptoms reported regarding the musculoskeletal system. Circulation, motion, and sensation intact. Capillary refill < 3 seconds, Range of motion: intact in all extremities. Vital Signs: 13:26 BP 157 / 90; Pulse 92; Resp 18; Temp 98; Pulse Ox 99% on R/A; ko1 ED Course: 13:23 Patient arrived in ED. im 13:23 Cindy Rodas FNP-C [facility] kb 13:23 Herson Rodas MD is Attending Physician. kb 13:31 Triage completed. ko1 13:31 Arm band placed on right wrist. Patient placed in an exam room, on a stretcher, on ko1 clinical research monitor, on pulse oximetry, Patient notified of wait time. 13:34 Stella López RN is Primary Nurse. kc6 14:01 Inserted saline lock: 20 gauge in right antecubital area, using aseptic technique. kc6 Blood collected. 14:07 XRAY Chest (1 view) In Process Unspecified. EDMS 14:26 Abdomen Limited US In Process Unspecified. EDMS 14:27 Patient has correct armband on for positive identification. Placed in gown. Bed in low kc6 position. Call light in reach. Side rails up X 1. Adult w/ patient. Client placed on continuous cardiac and pulse oximetry monitoring. NIBP monitoring applied. 14:47 CT Abd/Pelvis - IV Contrast Only In Process Unspecified. EDMS 15:17 No provider procedures requiring assistance completed. IV discontinued, intact, kc6 bleeding controlled, No redness/swelling at site. Pressure dressing applied. Administered Medications: 14:01 Drug: NS 0.9% IV 1000 ml IV at 1 bolus Per protocol; 1000 mL bolus Route: IV; Rate: 1 kc6 bolus; Site: right antecubital; 14:01 Drug: Famotidine IVP 20 mg IVP once; dilute with 10 mL 0.9% NaCl; give over 2 minutes kc6 Route: IVP; Site: right antecubital; 14:01 Drug: Ondansetron IVP 4 mg IVP once; over 2 minutes Route: IVP; Site: right antecubital;kc6 Medication: 15:17 VIS not applicable for this client. kc6 Outcome: 15:07 Discharge ordered by . kb 15:17 Discharged to home ambulatory, with significant other, kc6 15:17 Condition: improved 15:17 Discharge instructions given to patient, Instructed on discharge instructions, follow up and referral plans. medication usage, Demonstrated understanding of instructions, follow-up care, medications, Prescriptions given X 2, 15:17 Patient left the ED. kc6 Signatures: Dispatcher [employer] EDMS Cindy Rodas, ESEQUIEL CHANDLER-Stella Stapleton RN RN kc6 Annalise Frey RN RN ko1 Leticia Saldivar
--- NOTE | 2023-12-12 15:07 | EDPHYS ---
Physician Documentation [facility] Name: Sobeida Hay Age: 73 yrs Sex: Female : 1950 Arrival Date: 12/12/2023 Time: 13:19 Bed 19 Private MD: ED Physician Herson Rodas HPI: 12/11 13:36 This 73 yrs old Black Female presents to ER via Ambulatory with complaints of Vomiting, kb Headache, Abdominal Pain. 13:36 Pt is a 73-year-old female who reports burning pain to the epigastric area as well as kb nausea and vomiting x 3 today. States she woke up with the pain and vomiting at 0200. Denies fever, diarrhea. States she called Dr. Woo's office and had a virtual appointment scheduled for 4:15 but was told to come to the ER for evaluation by his office staff. Denies chest pain or shortness of breath.. Historical: - Allergies: 13:31 No Known Allergies; ko1 - PMHx: 13:31 Cancer-Colorectal cancer- In remission; Irregular heart rate; ko1 - Immunization history:: Adult Immunizations up to date. - Infectious Disease History:: Denies. - Social history:: Smoking status: Patient denies any tobacco usage or history of. ROS: 13:36 Constitutional: As per HPI kb Exam: 13:36 Constitutional: This is a well developed, well nourished patient who is awake, alert, kb and in no acute distress. Head/Face: Normocephalic, atraumatic. ENT: Moist Mucous membranes Cardiovascular: Regular rate Respiratory: Respirations even and unlabored. No increased work of breathing. Talking in full sentences Abdomen/GI: Soft, non-tender. No distention Skin: Warm, dry with normal turgor. Normal color. MS/ Extremity: Pulses equal, no cyanosis. Neurovascular intact. Full, normal range of motion. Neuro: Awake and alert, GCS 15, oriented to person, place, time, and situation. Moves all extremities. Normal gait. 13:57 ECG was reviewed by the Attending Physician. kb Vital Signs: 13:26 BP 157 / 90; Pulse 92; Resp 18; Temp 98; Pulse Ox 99% on R/A; ko1 MDM: 13:23 Patient medically screened. kb 13:37 Data reviewed: vital signs, nurses notes. kb 15:06 Differential diagnosis: Nonspecific abd pain, gastritis, cholecystitis, pancreatitis, kb GERD. Management of patient was discussed with the following: Primary Care Provider: Dr Woo, recommends outpatient follow up in office next week. Counseling: I had a detailed discussion with the patient and/or guardian regarding the historical points, exam findings, and any diagnostic results supporting the discharge/admit diagnosis, lab results, radiology results, the need for outpatient follow up, a family practitioner, to return to the emergency department if symptoms worsen or persist or if there are any questions or concerns that arise at home. ED course: At bedside to reassess patient. Patient remains awake, alert and at baseline mentation. Patient appears stable. Patient exhibits no visible signs of distress. Patient respirations even and unlabored. I discussed patient's diagnosis, differential diagnosis, expected course of illness, at home recommendations and strict return precautions. I advised patient to follow-up with PCP next week. I explained all diagnostic results with the patient and answered all questions that patient had regarding the most likely diagnosis. I emphasized the need for close outpatient follow-up and care from primary care provider/specialist and went through careful and detailed return precautions with patient. Patient expressed full understanding of such and agrees with plan for discharge today. Feel patient is stable and appropriate for discharge and ongoing management of condition at home at this time.. 12/11 13:33 Order name: CBC with Diff; Complete Time: 14:09 kb 12/11 13:33 Order name: CMP; Complete Time: 14:35 kb 12/11 13:33 Order name: Lipase; Complete Time: 14:35 kb 12/11 13:33 Order name: Troponin HS; Complete Time: 14:35 kb 12/11 13:33 Order name: Abdomen Limited US; Complete Time: 14:35 kb 12/11 13:33 Order name: XRAY Chest (1 view); Complete Time: 14:29 kb 12/11 14:35 Order name: CT Abd/Pelvis - IV Contrast Only; Complete Time: 14:58 kb 12/11 13:33 Order name: IV Saline Lock; Complete Time: 14:01 kb 12/11 13:33 Order name: Labs collected and sent; Complete Time: 14:01 kb 12/11 13:33 Order name: EKG - Nurse/Tech; Complete Time: 14:01 kb EC:57 Rate is 78 beats/min. Rhythm is regular. QRS [place] is Normal. [place] interval is normal at kb 184 msec. QRS interval is normal at 102 msec. QT interval is normal at 446 msec. Administered Medications: 14:01 Drug: NS 0.9% IV 1000 ml IV at 1 bolus Per protocol; 1000 mL bolus Route: IV; Rate: 1 kc6 bolus; Site: right antecubital; 14:01 Drug: Famotidine IVP 20 mg IVP once; dilute with 10 mL 0.9% NaCl; give over 2 minutes kc6 Route: IVP; Site: right antecubital; 14:01 Drug: Ondansetron IVP 4 mg IVP once; over 2 minutes Route: IVP; Site: right antecubital;kc6 Disposition Summary: 12/12/23 15:07 Discharge Ordered Notes: Location: Home kb Condition: Stable kb Diagnosis - Epigastric pain kb Followup: kb - With: Emergency Department - When: As needed - Reason: Worsening of condition Followup: kb - With: Private Physician - When: 2 - 3 days - Reason: Recheck today's complaints, Continuance of care, Re-evaluation by your physician Discharge Instructions: - Discharge Summary Sheet kb - Abdominal Pain, Adult, [id number] kb - Gastroesophageal Reflux Disease, Adult, [id number] kb Forms: - Medication Reconciliation Form kb - Thank You Letter kb - Antibiotic Education kb - Prescription Opioid Use kb - Patient Portal Instructions kb - Leadership Thank You Letter kb Prescriptions: - Zofran 4 mg Oral tablet - take 1 tablet ORAL route every 6 hours As needed; 12 tablet; Refills: 0, kb Product Selection Permitted - Pepcid 20 mg Oral Tablet - take 1 tablet ORAL route once daily; 20 tablet; Refills: 0, Product Selection kb Permitted Addendum: 12/14/2023 01:03 I was immediately available for consultation during this patient's visit. I did not e c2 personally see the patient or discuss the patient with the VIKI. . Signatures: Dispatcher [employer] Cindy Corea FNP-C FNP-Stella Stapleton RN RN kc6 Annalise Frey RN RN ko1 Herson Rodas MD MD ec2 Corrections: (The following items were deleted from the chart) 12/11 13:34 13:34 Chest Single View+RAD.RAD.BRZ ordered. EDMS EDMS
[2023-12-12 22:10] VITALS: BP 157/90; TEMP 98; O2SAT 99
== END 2023-12-12 15:17 | disposition home or self-care (01) ==
LOC: ER 13:19
DX: R10.13 Epigastric pain (principal); R11.2 Nausea with vomiting, unspecified; R51.9 Headache, unspecified; Z85.038 Personal history of other malignant neoplasm of large intestine; Z85.048 Personal history of other malignant neoplasm of rectum, rectosigmoid junction, and anus
CPT/HCPCS: 85025; 36415; 84484; 83690; 80053; 74177; 71045; 76705; Q9967; J2405; J7030; 93005

== ENCOUNTER 2024-09-15 09:12 | Emergency (ER) | payer OTHER ==
[2024-09-15] MEDS ORDERED: ONDANSETRON 4 MG/2 ML VIAL ONE (09:33)
[2024-09-15] MEDS ORDERED: FAMOTIDINE 20 MG/2 ML VIAL IV ONE (09:33)
[2024-09-15 09:58] LABS: Absolute Lymphocytes (CBC) 2.1 K/uL (0.7-4.9); Absolute Monocytes 0.9 K/uL (0.1-1.3); Absolute Neutrophil 2.4 K/uL (1.8-8.0); Basophils % 0.5 % (0-1.3); Hematocrit 45.6 % (36.0-45.0); Hemoglobin 14.7 g/dL (12.0-15.0); Lymphocytes % 38.4 % (15.3-44.8); MCH 26.7 pg (27.0-35.0); MCHC 32.3 g/dL (32.0-36.0); MCV 82.8 fL (80-100); MPV 8.7 fL (7.6-11.3); Monocytes % 16.1 % (3.3-12.3); Nucleated Red Blood Cells % 0.2 % (0-0); Platelets 179 thou/uL (152-406); RBC Red Blood Cell Count 5.51 M/uL (3.86-4.86); Red Cell Distribution Width 14.2 % (12.1-15.2)
[2024-09-15 10:09] LABS: Sqamous Epithelial <5 /HPF (None Seen); Urine Bacteria <20 /HPF (<20); Urine Bilirubin NEGATIVE (Negative); Urine Blood 1+ (Negative); Urine Clarity Extremely Turbid (Clear); Urine Color Yellow (Yellow); Urine Culture Reflex Order NOT NEEDED; Urine Glucose NEGATIVE (Negative); Urine Ketones 1+ (Negative); Urine Microscopic Reflex YN ORDER UMIC; Urine Mucus 4+ /HPF (None Seen); Urine Nitrite NEGATIVE (Negative); Urine Protein 1+ (Negative); Urine RBC <5 /HPF (None Seen); Urine Urobilinogen Normal (Normal); Urine pH 5.5 (5.0-7.0)
[2024-09-15 10:13] LABS: SARS-CoV-2 Antigen CONTROL BLUE LINE VIS/BG OK; SARS-CoV-2 Antigen Rapid Res Negative (Negative)
--- NOTE | 2024-09-15 10:15 | RAD REPORT ---
EXAMINATION: ONE VIEW CHEST XR CLINICAL INDICATION: COUGH TECHNIQUE: Frontal chest projection is submitted. Examination is limited by patient positioning and t echnique. COMPARISON: 05/18/2024 FINDINGS: The lungs are well inflated and clear. The heart is upper limit of normal in size. No displaced fract ures identified. IMPRESSION: No acute intrathoracic abnormalities.
[2024-09-15 10:17] LABS: Albumin 3.4 g/dL (3.4-5.0); Albumin/Globulin Ratio 0.8 (1.1-1.8); Anion Gap 10.6 mEq/L (5.0-15.0); Bilirubin Direct 0.2 mg/dL (0-0.2); Bilirubin Indirect, Calculated 0.5 mg/dL (0.2-0.8); Bilirubin Total 0.7 mg/dL (0.2-1.0); Globulin 4.3 g/dL (2.3-3.5); Magnesium 2.2 mg/dL (1.6-2.4); Potassium 3.6 mEq/L (3.5-5.1); Protein, Total 7.7 g/dL (6.4-8.2); Troponin High Sensitivity 7.8 pg/mL (<58.9)
[2024-09-15] MEDS ORDERED: NA CHLORIDE 0.9% 500 ML ONE (10:18)
--- NOTE | 2024-09-15 11:22 | EDPHYS ---
Physician Documentation [facility] Name: Sobeida Hay Age: 74 yrs Sex: Female : 1950 Arrival Date: 09/15/2024 Time: 09:12 Bed 20 Private MD: ED Physician Easton Osborne HPI: 09/15 09:25 This 74 yrs old Black Female presents to ER via Unassigned with complaints of Flu cp Symptoms. 09:25 Onset: The symptoms/episode began/occurred this past Sunday. Associated signs and cp symptoms: Pertinent positives: congestion, cough, shortness of breath, fatigue, Pertinent negatives: abdominal pain, chest pain, constipation, diarrhea, fever. Historical: - Allergies: :28 No Known Allergies; ss - PMHx: : Cancer-Colorectal cancer- In remission; Irregular heart rate; ss - Immunization history:: Adult Immunizations up to date. - Infectious Disease History:: Denies. - Social history:: Smoking status: Patient denies any tobacco usage or history of. ROS: 09:30 Constitutional: Positive for fatigue, Negative for fever, poor PO intake, cp 09:30 Cardiovascular: Negative for chest pain, palpitations, cp 09:30 Respiratory: Positive for cough, with clear sputum, shortness of breath, on exertion. Negative for wheezing, 09:30 Eyes: Negative for injury, pain, redness, and discharge, cp 09:30 ENT: Negative for drainage from ear(s), ear pain, sore throat, difficulty swallowing, cp difficulty handling secretions, 09:30 Abdomen/GI: Negative for abdominal pain, vomiting, diarrhea, constipation, 09:30 Skin: Negative for rash, 09:30 Neuro: Negative for altered mental status, dizziness, headache, 09:30 All other systems are negative, Exam: 09:35 Constitutional: The patient appears in no acute distress, alert, awake, cp non-diaphoretic, non-toxic, well developed, well nourished, 09:35 Head/Face: Normocephalic, atraumatic. cp 09:35 Eyes: Periorbital structures: appear normal, Conjunctiva: normal, no exudate, no injection, Sclera: no appreciated abnormality, Lids and lashes: appear normal, bilaterally, 09:35 ENT: External ear(s): are unremarkable, Ear canal(s): are normal, clear, TM's: dullness, bilaterally, Nose: is normal, Mouth: Lips: moist, Oral mucosa: moist, Posterior pharynx: Airway: no evidence of obstruction, patent, Voice: is normal, 09:35 Neck: ROM/movement: is normal, is supple, without pain, no range of motions limitations, 09:35 Chest/axilla: Inspection: normal, 09:35 Cardiovascular: Rate: normal, Rhythm: regular, 09:35 Respiratory: the patient does not display signs of respiratory distress, Respirations: normal, no use of accessory muscles, no retractions, labored breathing, is not present, Breath sounds: are clear throughout, no decreased breath sounds, no stridor, no wheezing, 09:35 Abdomen/GI: Inspection: abdomen appears normal, Palpation: abdomen is soft and non-tender, in all quadrants, 09:35 Neuro: Orientation: to person, place \T\ time. Mentation: is normal, Motor: moves all fours, strength is normal, Sensation: is normal, 09:53 ECG was reviewed by the Attending Physician. Vital Signs: 09:27 BP 101 / 68; Pulse 88; Resp 16; Temp 97.7(O); Pulse Ox 97% on R/A; Weight 76.66 kg; ss Height 5 ft. 6 in. ; Pain 5/10; 11:35 BP 108 / 71; Pulse 85; Resp 18 S; Pulse Ox 95% on R/A; kc6 09:27 Body Mass Index 27.28 (76.66 kg, 167.64 cm) ss 09:27 Pain Scale: Adult ss MDM: 09:18 Medical Screening Exam initiated ec2 10:15 Differential diagnosis: viral Infection, bacterial infection, bronchitis, pneumonia cp UTI, Pyelonephritis, sepsis. 11:21 Data reviewed: vital signs, nurses notes, lab test result(s), EKG, radiologic studies, cp plain films, and as a result, I will discharge patient. 11:22 I considered the following discharge prescriptions or medication management in the emergency department Medications were administered in the Emergency Department. See MAR. 11:22 Care significantly affected by the following chronic conditions: Cancer. Counseling: I cp had a detailed discussion with the patient and/or guardian regarding the historical points, exam findings, and any diagnostic results supporting the discharge/admit diagnosis, lab results, radiology results, to return to the emergency department if symptoms worsen or persist or if there are any questions or concerns that arise at home. Response to treatment: the patient's symptoms have mildly improved after treatment, and as a result, I will discharge patient. 09/15 09:28 Order name: Strep 09/15 10:16 Interpretation: Reviewed. 09/15 09:28 Order name: Basic Metabolic Panel; Complete Time: 10:56 09/15 10:56 Interpretation: Normal except: CL 108; CRE 1.06; GFR 54. 09/15 09:28 Order name: CBC with Diff; Complete Time: 10:11 09/15 11:13 Interpretation: Normal except: RBC 5.51; HCT 45.6; MCH 26.7; MN% 16.1. 09/15 08:28 Order name: LFT's; Complete Time: 10:56 09/15 10:56 Interpretation: Normal except: GLOB 4.3; A/G 0.8. 09/15 09:28 Order name: Magnesium; Complete Time: 10:56 09/15 11:14 Interpretation: Reviewed. 09/15 09:28 Order name: Troponin HS; Complete Time: 10:56 09/15 11:14 Interpretation: Reviewed. 09/15 09:28 Order name: Lipase; Complete Time: 10:56 09/15 11:14 Interpretation: Reviewed. 09/15 09:28 Order name: RSV 09/15 09:28 Order name: SARS RAPID; Complete Time: 10:15 09/15 10:16 Interpretation: Reviewed. 09/15 09:28 Order name: Influenza Screen (a \T\ B); Complete Time: 10:15 09/15 10:15 Interpretation: FLUA FLU A ----- POSITIVE for FLU A protein antigen; Reviewed. 09/15 09:28 Order name: Urinalysis w/ reflexes; Complete Time: 10:11 09/15 10:11 Interpretation: Normal except: [facility] Extremely Turbid; UKET 1+; UBLD 1+; UPROT 1+; MUCUS cp 4+; HYAL 10-20; GCAST 5-10. 09/15 10:17 Order name: Throat Culture EDMS 09/15 09:28 Order name: XRAY Chest (1 view); Complete Time: 10:15 cp 09/15 10:15 Interpretation: Report review. cp 09/15 09:28 Order name: Cardiac monitoring; Complete Time: :47 cp 09/15 09:28 Order name: EKG - Nurse/Tech; Complete Time: :47 cp 09/15 09:28 Order name: IV Saline Lock; Complete Time: 09:47 cp 09/15 09:28 Order name: Labs collected and sent; Complete Time: : cp 09/15 09:28 Order name: O2 Per Protocol; Complete Time: : cp 09/15 09:28 Order name: O2 Sat Monitoring; Complete Time: : cp 09/15 11:15 Order name: PO challenge; Complete Time: 11:31 cp EC:53 Rate is 80 beats/min. Rhythm is regular. [place] interval is normal. QRS interval is normal. cp QT interval is normal. T waves are Inverted. Interpreted by me. Reviewed by me. Administered Medications: 09:47 Drug: Ondansetron IVP 4 mg IVP once; over 2 minutes Route: IVP; Site: right antecubital;ld1 11:34 Follow up: Response: No adverse reaction kc6 09:47 Drug: Famotidine IVP 20 mg IVP once; dilute with 10 mL 0.9% NaCl; give over 2 minutes ld1 Route: IVP; Site: right antecubital; 11:34 Follow up: Response: No adverse reaction kc6 10:20 Drug: NS 0.9% IV 500 ml 500 ml IV at 1 bolus once; to be given as a bolus over 60 kc6 minutes Volume: 500 ml; Route: IV; Rate: 1 bolus; Site: right antecubital; 11:34 Follow up: Response: No adverse reaction; IV Status: Completed infusion; IV Intake: kc6 500ml Disposition: 11:48 Co-signature as Attending Physician, Easton Osborne MD I reviewed the patient's care rn provided by the Advanced Practice Provider and agree with the diagnosis and treatment plan. Disposition Summary: 09/15/24 11:22 Discharge Ordered Notes: Location: Home cp Problem: new cp Symptoms: have improved cp Condition: Stable cp Diagnosis - Influenza due to identified novel influenza A virus with other respiratory cp manifestations Followup: cp - With: Private Physician - When: 2 - 3 days - Reason: Worsening of condition Discharge Instructions: - Discharge Summary Sheet cp - Influenza, Adult cp - Influenza Tests cp Forms: - Medication Reconciliation Form cp - Antibiotic Education cp - Prescription Opioid Use cp - Patient Portal Instructions cp - Leadership Thank You Letter cp Signatures: Dispatcher [employer] EDMS Easton Osborne MD MD rn Blanchard, Shelby, RN RN ss Eddy Underwood PA PA cp Gabriella Greene RN RN ld1 Stella López RN RN kc6 Herson Rodas MD MD ec2 Corrections: (The following items were deleted from the chart) 09:25 09:24 This 74 yrs old Black Female presents to ER via Unassigned with complaints of Flu cp Symptoms. cp 09:29 09:29 BASIC METABOLIC PANEL+C.LAB.BRZ ordered. EDMS EDMS 09:29 09:29 CBC+H.LAB.BRZ ordered. EDMS EDMS 09:29 09:29 HEPATIC FUNCTION+C.LAB.BRZ ordered. EDMS EDMS 09:29 09:29 MAGNESIUM+C.LAB.BRZ ordered. EDMS EDMS 09:29 09:29 Troponin High Sensitivity+C.LAB.BRZ ordered. EDMS EDMS 09:29 09:29 LIPASE+C.LAB.BRZ ordered. EDMS EDMS 09:29 09:29 Respiratory Syncytial Virus Ag+BA.LAB.BRZ ordered. EDMS EDMS 09:29 09:29 SARS-COV-2 Antigen Rapid+I.LAB.BRZ ordered. EDMS EDMS 09:29 09:29 Influenza Screen (A \T\ B)+BA.LAB.BRZ ordered. EDMS EDMS 09:29 09:29 Group A Streptococcus Rapid Sc+BA.LAB.BRZ ordered. EDMS EDMS 09:29 09:29 Urinalysis+U.LAB.BRZ ordered. EDMS EDMS 09:29 09:29 Chest Single View+RAD.RAD.BRZ ordered. EDMS EDMS 20:42 09:25 Associated signs and symptoms: Pertinent positives: congestion, cough, Pertinent cp negatives: abdominal pain, chest pain, constipation, diarrhea, fever, cp
--- NOTE | 2024-09-15 11:22 | ER ---
Nurse's Notes [facility] Name: Sobeida Hay Age: 74 yrs Sex: Female : 1950 Arrival Date: 09/15/2024 Time: 09:12 Bed 20 Private MD: Diagnosis: Influenza due to identified novel influenza A virus with other respiratory manifestations Presentation: 09/15 09:27 Chief complaint: Patient states: Fatigue, cough and shortness of breath that began over ss the weekend. Coronavirus screen: Client denies travel out of the [place] in the last 14 days. Ebola Screen: Patient denies exposure to infectious person. Patient denies travel to an Ebola-affected area in the 21 days before illness onset. Initial Sepsis Screen: Does the patient meet any 2 criteria? No. Patient's initial sepsis screen is negative. Does the patient have a suspected source of infection? No. Patient's initial sepsis screen is negative. Risk Assessment: Do you want to hurt yourself or someone else? Patient reports no desire to harm self or others. Onset of symptoms Onset of symptoms was September 12, 2024. 09:27 Method Of Arrival: Ambulatory ss 09:27 Acuity: MONICA 3 ss Historical: - Allergies: 09:28 No Known Allergies; ss - PMHx: 09:28 Cancer-Colorectal cancer- In remission; Irregular heart rate; ss - Immunization history:: Adult Immunizations up to date. - Infectious Disease History:: Denies. - Social history:: Smoking status: Patient denies any tobacco usage or history of. Screenin:47 [facility] ED Fall Risk Assessment (Adult) History of falling in the last 3 months, kc6 including since admission No falls in past 3 months (0 pts) Confusion or Disorientation No (0 pts) Intoxicated or Sedated No (0 pts) Impaired Gait No (0 pts) Mobility Assist Device Used No (0 pt) Altered Elimination No (0 pt) Score/Fall Risk Level 0 - 2 = Low Risk Oriented to surroundings, Maintained a safe environment, Educated pt \T\ family on fall prevention, incl call for assistance when getting out of bed. Abuse screen: Denies threats or abuse. Denies injuries from another. Nutritional screening: No deficits noted. Tuberculosis screening: No symptoms or risk factors identified. Assessment: 09:47 General: Appears in no apparent distress. comfortable, well groomed, well developed, kc6 Behavior is calm, cooperative, appropriate for age. Pain: Denies pain. Neuro: Level of Consciousness is awake, alert, obeys commands, Oriented to person, place, time, situation, Appropriate for age Reports weakness. Cardiovascular: Denies chest pain, shortness of breath, Capillary refill < 3 seconds. Respiratory: Reports cough that is non-productive, Airway is patent Trachea midline Respiratory effort is even, unlabored, Respiratory pattern is regular, symmetrical. GI: Reports nausea, Patient currently denies diarrhea, vomiting. : No signs and/or symptoms were reported regarding the genitourinary system. Urine is cloudy. EENT: No signs and/or symptoms were reported regarding the EENT system. Derm: No signs and/or symptoms reported regarding the dermatologic system. Skin is intact, is healthy with good turgor, Skin is pink, warm \T\ dry. Musculoskeletal: No signs and/or symptoms reported regarding the musculoskeletal system. Circulation, motion, and sensation intact. Range of motion: intact in all extremities. 10:47 Reassessment: Patient appears in no apparent distress at this time. No changes from kc6 previously documented assessment. Patient and/or family updated on plan of care and expected duration. Pain level reassessed. Patient is alert, oriented x 3, equal unlabored respirations, skin warm/dry/pink. 11:35 Reassessment: Patient appears in no apparent distress at this time. No changes from kc6 previously documented assessment. Patient and/or family updated on plan of care and expected duration. Pain level reassessed. Patient is alert, oriented x 3, equal unlabored respirations, skin warm/dry/pink. Vital Signs: 09:27 BP 101 / 68; Pulse 88; Resp 16; Temp 97.7(O); Pulse Ox 97% on R/A; Weight 76.66 kg; ss Height 5 ft. 6 in. ; Pain 5/10; 11:35 BP 108 / 71; Pulse 85; Resp 18 S; Pulse Ox 95% on R/A; kc6 09:27 Body Mass Index 27.28 (76.66 kg, 167.64 cm) ss 09:27 Pain Scale: Adult ss ED Course: 09:14 Patient arrived in ED. im 09:17 Stella López, SABRINA is Primary Nurse. kc6 09:18 Herson Rodas MD is Attending Physician. ec2 09:18 Eddy Underwood PA is PHCP. cp 09:18 Attending Physician role handed off by Herson Rodas MD cp 09:18 Easton Osborne MD is Attending Physician. cp 09:28 Triage completed. ss 09:28 Arm band placed on right wrist. ss 09:47 Patient has correct armband on for positive identification. Placed in gown. Bed in low kc6 position. Call light in reach. Side rails up X 1. Adult w/ patient. traffic monitor specialist on. Pulse ox on. NIBP on. Door closed. Noise minimized. Lights dimmed. Warm blanket given. Pillow given. 09:47 RSV Sent. ld1 09:47 SARS RAPID Sent. ld1 09:47 Influenza Screen (a \T\ B) Sent. ld1 09:47 Strep Sent. ld1 09:47 Urinalysis w/ reflexes Sent. ld1 09:47 Inserted saline lock: 20 gauge in right antecubital area, using aseptic technique. ld1 Blood collected. Flushed with 10 mL NS. 09:47 Patient maintains SpO2 saturation greater than 95% on room air. kc6 10:12 XRAY Chest (1 view) In Process Unspecified. EDMS 11:34 Diet: Patient given water. Tolerated well. kc6 11:41 No provider procedures requiring assistance completed. IV discontinued, intact, kc6 bleeding controlled, No redness/swelling at site. Pressure dressing applied. Administered Medications: 09:47 Drug: Ondansetron IVP 4 mg IVP once; over 2 minutes Route: IVP; Site: right antecubital;ld1 11:34 Follow up: Response: No adverse reaction kc6 09:47 Drug: Famotidine IVP 20 mg IVP once; dilute with 10 mL 0.9% NaCl; give over 2 minutes ld1 Route: IVP; Site: right antecubital; 11:34 Follow up: Response: No adverse reaction kc6 10:20 Drug: NS 0.9% IV 500 ml 500 ml IV at 1 bolus once; to be given as a bolus over 60 kc6 minutes Volume: 500 ml; Route: IV; Rate: 1 bolus; Site: right antecubital; 11:34 Follow up: Response: No adverse reaction; IV Status: Completed infusion; IV Intake: kc6 500ml Medication: 11:41 VIS not applicable for this client. kc6 Intake: 11:34 IV: 500ml; Total: 500ml. kc6 Outcome: 11:22 Discharge ordered by . cp 11:41 Discharged to home ambulatory, with significant other, kc6 11:41 Condition: good 11:41 Discharge instructions given to patient, significant other, Instructed on discharge instructions, follow up and referral plans. Demonstrated understanding of instructions, follow-up care, :41 Patient left the ED. kc6 Signatures: Dispatcher [employer] EDJo Moralez, RN RN ss Eddy Underwood, JED PA cp Gabriella Greene RN RN ld1 Stella López RN RN kc6 Leticia Saldivar Edwin, MD MD ec2
[2024-09-15 11:48] VITALS: TEMP 97.7
[2024-09-15 11:49] VITALS: BP 108/71; O2SAT 95
--- NOTE | 2024-09-18 13:04 | EKG ---
Test Date: 2024-09-15 Test Time: 09:45:53 Strategic Partner Development Manager: CLINT MEASUREMENT RESULTS: Intervals: Rate: 80 PA: 168 QRSD: 98 QT: 426 QTc: 491 [place]: P: 45 PA: 168 QRS: -31 T: 56 INTERPRETIVE STATEMENTS: Normal sinus rhythm with sinus arrhythmia Left axis deviation Anterior infarct, age undetermined Abnormal ECG Compared to ECG 05/18/2024 17:05:31 Incomplete right bundle-branch block no longer present T-wave abnormality no longer present Possible ischemia no longer present Myocardial infarct finding still present Electronically Signed On 09-18-24 13:00:12 JAVA SOFTWARE by Kasi Stein
== END 2024-09-15 11:41 | disposition home or self-care (01) ==
LOC: ER 09:12
DX: J10.1 Influenza due to other identified influenza virus with other respiratory manifestations (principal); Z11.52 Encounter for screening for COVID-19; Z85.038 Personal history of other malignant neoplasm of large intestine
CPT/HCPCS: 96361; 87070; 85025; 81001; 80048; 36415; 83735; 80076; 87081; 84484; 83690; 87807; 87804 ×2; 71045; 96375; 96374; 99285; 87811; J2405; J7040; 93005